=== PATIENT | female | born 1995 | race Caucasian/White ===

== ENCOUNTER 2017-06-30 08:06 | Outpatient (CLI) | payer BC ==
--- NOTE | 2017-06-30 12:12 | MRI ---
MRI RIGHT FOOT WITHOUT CONTRAST: HISTORY: Fourth and fifth metatarsal pain. COMPARISON: None. FINDINGS: BONES: No fracture. No malalignment. Disk space interval is maintained. No edema. MUSCLES: Normal muscle signal of the intrinsic muscles of the foot. TENDONS: No tenosynovitis. SOFT TISSUES: Normal. IMPRESSION: No evidence for stress fracture or stress reaction. No subluxation. No fracture. No tenosynovitis. POS: [facility]
== END 2017-06-30 08:07 | disposition home or self-care (01) ==
LOC: SCSMRI 08:06
PROVIDERS: ATTEND Podiatrist
DX: M25.571 Pain in right ankle and joints of right foot (principal)